=== PATIENT | female | born 1970 | race Caucasian/White ===

== ENCOUNTER 2018-11-08 08:15 | Inpatient (IN) | payer BC, OTHER ==
[2018-11-04 17:28] VITALS: BMI 25.4
[2018-11-08] MEDS: SODIUM CHLORIDE 1,000 ML IV SCH ×2 (13:01→21:27)
[2018-11-08] MEDS ORDERED: HYDROmorphone *PCA* 10MG/50ML DISP.SYRIN PCA ONE (13:08)
[2018-11-08] MEDS ORDERED: ONDANSETRON 4 MG/2 ML VIAL ONE (13:18)
[2018-11-08] MEDS ORDERED: ONDANSETRON 4 MG/2 ML VIAL IVPUSH PRN (16:40)
[2018-11-08] MEDS ORDERED: HYDROmorphone *PCA* 10MG/50ML DISP.SYRIN PCA SCH (16:45)
[2018-11-09] MEDS: SODIUM CHLORIDE 1,000 ML IV SCH (06:15)
[2018-11-09 07:42] LABS: HEMOGLOBIN 11.1 GM/dL (10.7-15.3); MCH 32.1 pg (25.7-33.7); MCHC 34.5 g/dl (32.0-36.0); MEAN CELL VOLUME 92.9 fl (80-96); MEAN PLT VOLUME 8.4 fl (7.5-11.1); PLATELET COUNT 212 K/MM3 (134-434); RBC 3.45 M/mm3 (3.60-5.2); RDW 13.8 % (11.6-15.6); WHITE BLOOD COUNT 6.6 K/mm3 (4.0-10.0)
[2018-11-09 08:22] LABS: ANION GAP 6 MMOL/L (8-16); BLOOD UREA NITROGEN 14 mg/dL (7-18); CALCIUM 7.6 mg/dL (8.5-10.1); CHLORIDE 112 mmol/L (98-107); CO2 25 mmol/L (21-32); CREATININE 0.5 mg/dL (0.55-1.3); GLUCOSE,RANDOM 91 mg/dL (74-106); POTASSIUM 3.9 mmol/L (3.5-5.1); SODIUM 142 mmol/L (136-145)
[2018-11-09 14:19] VITALS: BP 120/69; PULSE 85
[2018-11-09 14:30] VITALS: TEMP 98.2
--- NOTE | 2018-11-09 16:04 | DS ---
Physical Examination Vital Signs: Vital Signs Temperature 98.2 F 11/09/18 14:30 Pulse Rate 85 11/09/18 10:38 Respiratory Rate 20 11/09/18 10:38 Blood Pressure 120/69 11/09/18 10:38 O2 Sat by Pulse Oximetry (%) 96 11/08/18 22:38 Constitutional: Yes: Well Nourished, No Distress, Calm Eyes: Yes: Conjunctiva Clear, EOM Intact, PERRL HENT: Yes: Atraumatic, Normocephalic Neck: Yes: Supple, Trachea Midline Cardiovascular: Yes: Regular Rate and Rhythm Respiratory: Yes: Regular, CTA Bilaterally Gastrointestinal: Yes: Normal Bowel Sounds, Soft, Abdomen, Obese, Hyperactive Bowel Sounds ...Rectal Exam: Yes: Deferred Musculoskeletal: Yes: Back Pain, Joint Stiffness Extremities: Yes: WNL Edema: No Peripheral Pulses WNL: Yes Peripheral Pulses: Left Radial: 2+, Right Radial: 2+, Left Doralis Pedis: 2+, Right Dorsalis Pedis: 2+ Integumentary: Yes: WNL Wound/Incision: Yes: Clean/Dry (right groin) Neurological: Yes: Alert, Oriented ...Motor Strength: WNL Psychiatric: Yes: Alert, Oriented Labs: CBC, BMP 11/09/18 07:00 11/09/18 07:00 Discharge Summary Reason For Visit: UTERINE FIBORIDS Uterine fibroids Procedures: Principal: Uterine fibroid embolectomy 11/08/2018 Hospital Course: 48 year old F with h/o uterine fibroid presents for elective embolization. Her procedure was uncomplicated and she had suffered no evident adverse events. Patient stable for discharge and will follow up with [employer] Dr. Bourgeois in 2 weeks. Pt stable to return to work on Thursday Condition: Good - Instructions Diet, Activity, Other Instructions: regular diet Referrals: Linh Bourgeois DO [Staff Physician] - Disposition: HOME - Home Medications Comprehensive Discharge Medication List: Ambulatory Orders Acetaminophen [Tylenol] 650 mg PO PRN PRN 11/04/18 Cholecalciferol (Vitamin D3) [Vitamin D3] 1,000 unit PO DAILY 11/04/18 Fexofenadine/Pseudoephedrine [Danii-D 24 Hour Tablet] 1 tab PO DAILY 11/04/18 This patient is new to me today: Yes Date on this admission: 11/09/18 Emergency Visit: No Critical Care patient: No - Discharge Referral Referred to [facility] Med P.C.: No
== END 2018-11-09 17:24 | disposition home or self-care (01) | DRG 750 ==
LOC: JRADIR 08:15 → J6S 16:34 → JRADIR 23:10
PROVIDERS: ADMIT Radiology Diagnostic Radiology; ATTEND Nurse Practitioner Family
PROC: 04LE3ZT Occlusion of Right Uterine Artery, Percutaneous Approach (ICD-10-PCS; principal; 2018-11-09)
DX: D25.9 Leiomyoma of uterus, unspecified (principal)
CPT/HCPCS: 36415; 37243; 76000-TC-FY; 76998-TC; 80048; 85027; C1760; C1769; C1887; C1894; J7030